=== PATIENT | male | born 1990 | race African-American/Black ===

== ENCOUNTER 2023-12-14 12:20 | Emergency (ER) | payer BC, MEDICAID ==
[~2023-12-14] VITALS: Ht 182.9 cm; Wt 88.0 kg
[2023-12-14 12:23] VITALS: TEMP 98.2; O2SAT 99
[2023-12-14 13:16] VITALS: BP 115/67; PULSE 68; RESP 18
[2023-12-14] MEDS: IBUPROFEN 600MG TABLET PO ONE (13:16)
[2023-12-14] MEDS ORDERED: IBUP-2029 MT (13:22)
== END 2023-12-14 13:42 | disposition home or self-care (01) ==
LOC: ER 12:20
DX: S43.402A Unspecified sprain of left shoulder joint, initial encounter (principal); Z88.0 Allergy status to penicillin; X58.XXXA Exposure to other specified factors, initial encounter; Y93.D3 Activity, furniture building and finishing; Y92.89 Other specified places as the place of occurrence of the external cause; Y99.8 Other external cause status
CPT/HCPCS: 73030; 99283